=== PATIENT | female | born 1995 | race Caucasian/White ===

== ENCOUNTER 2016-11-15 12:24 | Emergency (ER) | payer BC ==
[~2016-11-15] VITALS: Ht 167.6 cm; Wt 63.9 kg
[2016-11-15 12:30] VITALS: TEMP 36.6; Ht 167.6 cm; Wt 63.9 kg
[2016-11-15] MEDS ORDERED: KETOROLAC TROMETHAMINE 30 MG/ML VIAL IV STA (12:48)
[2016-11-15] MEDS ORDERED: BCPILLS PO (12:51)
--- NOTE | 2016-11-15 12:54 | EMERGENCY ROOM VISIT NOTE ---
History Report prepared by Misaibdaniela: Brianna Kamara Under the Supervision of: Dr. Candy Mac M.D. First contact with patient: 12:40 Chief Complaint: CHEST PAIN Stated Complaint: CHEST PAIN, ARM NUMBNESS, HANDS COLD, SWEATING History of Present Illness The patient is a 21 year old female who presents to the Emergency Room with complaints of persistent left sided chest pain that began today while she was at work. She also complains of cold sweats and stiff fingers with the occasional sensation of pins and needles in her fingers. Her chest pain does not radiate. It is not worse with breathing or to the touch. The patient notes that she was feeling off throughout the day today. She does note some stress recently related to school work and graduate school applications. She is on control pills. She denies any recent surgeries or long trips. Denies cough , shortness of breath, leg pain, or other complaints. She denies any recent alcohol use. Source of History: patient Onset: today Position: chest (left) Timing: other (persistent) Associated Symptoms: No SOB, No cough Note: Other symptoms: cold sweats, finger stiffness with pins and needles occasionally Review of Systems See HPI for pertinent positives & negatives. A total of 10 systems reviewed and were otherwise negative. Past Medical & Surgical Surgical Problems: (1) H/O elbow surgery Family History Cancer Diabetes mellitus Heart disease Hypertension Social History Smoking Status: Never Smoker Alcohol Use: occasionally Marital Status: single Housing Status: lives with family Occupation Status: employed Current/Historical Medications Scheduled Control Pills ( Control Pills), 1 TAB PO DAILY Allergies Coded Allergies: No Known Allergies (Unverified , 11/15/16) Physical Exam Vital Signs Date Time Temp Pulse Resp B/P Pulse Ox O2 Delivery O2 Flow Rate FiO2 11/15/16 14:08 69 18 113/64 99 Room Air 11/15/16 13:11 68 18 121/67 98 Room Air 11/15/16 12:49 100 Room Air 11/15/16 12:45 76 11/15/16 12:30 36.6 90 20 144/81 100 Room Air Physical Exam Vital signs reviewed. General: Well-appearing 21 year old female, in no significant distress. HEENT: No scleral icterus, PERRLA, neck supple. Atraumatic. Cardiovascular: Regular rate and rhythm, no extra sounds. Pulmonary: Clear to auscultation bilaterally, normal work of breathing. Abdomen: Soft, nontender, nondistended, positive bowel sounds. Musculoskeletal: Atraumatic, no peripheral edema. Neurologic: Patient awake alert and oriented x 3, full strength in all 4 extremities. Cranial nerves 2 through 12 grossly intact. Skin: Warm, dry, no rash Medical Decision & Procedures ER Provider Diagnostic Interpretation: Radiology results as stated below per my review and radiologist interpretation: CHEST ONE VIEW PORTABLE CLINICAL HISTORY: chest pain dyspnea COMPARISON STUDY: No previous studies for comparison. FINDINGS: The bones soft tissues and hemidiaphragms are normal. The cardiomediastinal silhouette is normal. The lungs are clear. The pulmonary vasculature is normal. IMPRESSION: Negative chest. Electronically signed by: Shilo Patrick M.D. 11/15/2016 1:17 PM Dictated Date/Time: 11/15/2016 1:17 PM Laboratory Results 11/15/16 12:47 Red Blood Count 5.04, Mean Corpuscular Volume 83.5, Mean Corpuscular Hemoglobin 29.8, Mean Corpuscular Hemoglobin Concent 35.6, Mean Platelet Volume 9.0, Neutrophils (%) (Auto) 60.9, Lymphocytes (%) (Auto) 31.9, Monocytes (%) (Auto) 5.9, Eosinophils (%) (Auto) 0.9, Basophils (%) (Auto) 0.3, Neutrophils # (Auto) 4.14, Lymphocytes # (Auto) 2.17, Monocytes # (Auto) 0.40, Eosinophils # (Auto) 0.06, Basophils # (Auto) 0.02 11/15/16 12:47 Test 11/15/16 12:47 11/15/16 12:57 White Blood Count 6.80 K/uL (4.8-10.8) Red Blood Count 5.04 M/uL (4.2-5.4) Hemoglobin 15.0 g/dL (12.0-16.0) Hematocrit 42.1 % (37-47) Mean Corpuscular Volume 83.5 fL (80-100) Mean Corpuscular Hemoglobin 29.8 pg (25-34) Mean Corpuscular Hemoglobin Concent 35.6 g/dl (32-36) Platelet Count 233 K/uL (130-400) Mean Platelet Volume 9.0 fL (7.4-10.4) Neutrophils (%) (Auto) 60.9 % Lymphocytes (%) (Auto) 31.9 % Monocytes (%) (Auto) 5.9 % Eosinophils (%) (Auto) 0.9 % Basophils (%) (Auto) 0.3 % Neutrophils # (Auto) 4.14 K/uL (1.4-6.5) Lymphocytes # (Auto) 2.17 K/uL (1.2-3.4) Monocytes # (Auto) 0.40 K/uL (0.11-0.59) Eosinophils # (Auto) 0.06 K/uL (0-0.5) Basophils # (Auto) 0.02 K/uL (0-0.2) RDW Standard Deviation 37.0 fL (36.4-46.3) RDW Coefficient of Variation 12.2 % (11.5-14.5) Immature Granulocyte % (Auto) 0.1 % Immature Granulocyte # (Auto) 0.01 K/uL (0.00-0.02) Anion Gap 9.0 mmol/L (3-11) Est Creatinine Clear Calc Drug Dose 122.4 ml/min Estimated GFR () 144.9 Estimated GFR (Non- 125.0 BUN/Creatinine Ratio 14.5 (10-20) Calcium Level 8.7 mg/dl (8.5-10.1) Total Bilirubin 0.9 mg/dl (0.2-1) Direct Bilirubin 0.2 mg/dl (0-0.2) Aspartate Amino Transf (AST/SGOT) 15 U/L (15-37) Alanine Aminotransferase (ALT/SGPT) 21 U/L (12-78) Alkaline Phosphatase 58 U/L (45-117) Total Protein 7.4 gm/dl (6.4-8.2) Albumin 3.9 gm/dl (3.4-5.0) Bedside D-Dimer 215 ng/mlFEU (0-450) Bedside Troponin I 0.020 ng/ml (0-0.045) Laboratory results per my review. Medications Administered Medications (Trade) Dose Ordered Sig/Leanne Route Start Time Stop Time Status Last Admin Dose Admin Ketorolac Tromethamine (Toradol Inj) 30 mg NOW STAT IV 11/15/16 12:48 11/15/16 12:50 DC 2/27/17 13:17 30 MG ECG Indication: chest pain Rate (beats per minute): 92 Rhythm: normal sinus Findings: nonspecific-ST abn, no ectopy, other (left atrial enlargement) ED Course 1246: The patient was evaluated in room B6. A complete history and physical examination was performed. 1248: Ordered Toradol Inj 30 mg IV. 1426: Upon reevaluation, the patient appeared to have improvement of her symptoms. I discussed findings with the patient. She verbalized agreement of the treatment plan. The patient was discharged home. Medical Decision DDX: Acute coronary syndrome, pulmonary embolus, aortic dissection, musculoskeletal pain, pneumonia, pleural effusion, pneumothorax This patient was evaluated and appeared to be in no significant distress. IV access was obtained and laboratory work was drawn. Patient was medicated with IV Toradol. EKG reveals no evidence of acute ischemia. Chest x-ray is negative. Patient's laboratory work reveals negative cardiac enzymes, negative d-dimer. The patient was informed of the findings. Patient will follow-up with her primary care physician. She will use ibuprofen as needed for pain. She will return to the ER for worsening of symptoms or any medical concerns. Impression Primary Impression: Musculoskeletal chest pain Scribe Attestation The scribe's documentation has been prepared under my direction and personally reviewed by me in its entirety. I confirm that the note above accurately reflects all work, treatment, procedures, and medical decision making performed by me. Departure Information Dispostion Home / Self-Care Referrals Martin Maharaj M.D.([facility]) (PCP) Patient Instructions My [facility] Additional Instructions Diagnosis: Musculoskeletal chest pain Ibuprofen 600 mg every 6 hours as needed for pain with food. Drink plenty of clear fluids. Follow-up with your physician this week for reevaluation. Return to the ER for worsening of symptoms or any medical concerns.
[2016-11-15 13:14] LABS: POINT OF CARE TROPONIN I 0.02 ng/ml (0-0.045)
[2016-11-15 13:16] LABS: BASO % 0.3 %; BASO ABS # 0.02 K/uL (0-0.2); COMPLETE YES; EOS % 0.9 %; HEMATOCRIT 42.1 % (37-47); IG% 0.1 %; LYMPH % 31.9 %; LYMPH ABS # 2.17 K/uL (1.2-3.4); MEAN CELL VOLUME 83.5 fL (80-100); MEAN CORPUSCULAR HEMOGLOBIN 29.8 pg (25-34); MEAN CORPUSCULAR HGB CONC 35.6 g/dl (32-36); MONO % 5.9 %; NEUT % 60.9 %; PLATELET COUNT 233 K/uL (130-400); RED BLOOD COUNT 5.04 M/uL (4.2-5.4)
--- NOTE | 2016-11-15 13:18 | DIAGNOSTIC IMAGING REPORT ---
CHEST ONE VIEW PORTABLE CLINICAL HISTORY: chest pain dyspnea COMPARISON STUDY: No previous studies for comparison. FINDINGS: The bones soft tissues and hemidiaphragms are normal. The cardiomediastinal silhouette is normal. The lungs are clear. The pulmonary vasculature is normal. IMPRESSION: Negative chest. Electronically signed by: Shilo Patrick M.D. 11/15/2016 1:17 PM Dictated Date/Time: 11/15/2016 1:17 PM
[2016-11-15 13:23] LABS: BUN/CREATININE RATIO 14.5 (10-20); CALCIUM 8.7 mg/dl (8.5-10.1); CREATININE 0.68 mg/dl (0.60-1.20); POTASSIUM 3.4 mmol/L (3.5-5.1)
[2016-11-15 14:08] VITALS: BP 113/64; PULSE 69; O2SAT 99
== END 2016-11-15 14:32 | disposition home or self-care (01) ==
LOC: C.EDB 12:26
DX: R07.89 Other chest pain (principal)